=== PATIENT | female | born 1945 | race Caucasian/White ===

== ENCOUNTER → 2024-01-25 14:39 | Outpatient (CLI) | payer MEDICARE, OTHER, SELFPAY ==
--- NOTE | 2024-01-25 14:46 | DI.RAD.S_ITS ---
PROCEDURE: XR CHEST 2V INDICATIONS: Cough TECHNIQUE: 2 views of the chest were acquired. COMPARISON: None. FINDINGS: Surgical changes and devices: None. Lungs and pleura: Minor right infrahilar alveolar opacity. No pleural effusion or pneumothorax. Mediastinum: Mediastinal contours are normal. Heart size is normal. Bones and chest wall: No suspicious bony abnormalities. Soft tissues appear unremarkable. IMPRESSION: Minor right infrahilar opacity may indicate infection or atelectasis. No pleural effusion. Dictated by: Rachel Alcantara M.D. on 01/25/2024 at 17:52 Approved by: Rachel Alcantara M.D. on 01/25/2024 at 17:52
== END ==
PROVIDERS: Family Provider Family Medicine; Referring Provider Nurse Practitioner Family; Visit Provider Nurse Practitioner Family
DX: R05.9 Cough, unspecified (principal)
CPT/HCPCS: 71046

== ENCOUNTER → 2024-04-10 18:48 | Outpatient (CLI) | payer MEDICARE, OTHER, SELFPAY ==
--- NOTE | 2024-04-10 18:52 | DI.RAD.S_ITS ---
PROCEDURE: XR WRIST LT MIN 3V INDICATIONS: left medial wrist pain/foosh TECHNIQUE: 4 views of the wrist were acquired. COMPARISON: None. FINDINGS: Bones: No fractures or dislocations. No suspicious bony lesions. Soft tissues: No suspicious soft tissue calcifications. IMPRESSION: No displaced fracture. If there remains a high clinical suspicion, or there is anatomic snuffbox tenderness, consider splinting and repeat radiographs in 10-14 days or cross-sectional imaging. Dictated by: Nitish Christy M.D. on 04/10/2024 at 19:18 Approved by: Nitish Christy M.D. on 04/10/2024 at 19:18
--- NOTE | 2024-04-10 18:52 | DI.RAD.S_ITS ---
PROCEDURE: XR HAND LT MIN 3V INDICATIONS: foosh medial carpal tenderness TECHNIQUE: 3 views of the hand(s) acquired. COMPARISON: None. FINDINGS: Bones: No fractures or dislocations. Carpal bones are normally aligned. No suspicious bony lesions. Osteopenia. 1st CMC joint space narrowing with associated osteophytosis and sclerosis. Interphalangeal joint space narrowing with osteophytosis. Soft tissues: No suspicious soft tissue calcifications. IMPRESSION: No acute bony abnormality. 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 Dictated by: Nitish Christy M.D. on 04/10/2024 at 19:17 Approved by: Nitish Christy M.D. on 04/10/2024 at 19:17
== END ==
LOC: RAD 18:51
PROVIDERS: Family Provider Family Medicine; PCP Nurse Practitioner Family; Referring Provider Student in an Organized Health Care Education/Training Program; Visit Provider Student in an Organized Health Care Education/Training Program
DX: S69.90XA Unspecified injury of unspecified wrist, hand and finger(s), initial encounter (principal); M19.042 Primary osteoarthritis, left hand
CPT/HCPCS: 73110; 73130